=== PATIENT | female | born 1950 | race Caucasian/White ===

== ENCOUNTER → 2016-11-19 | Outpatient (CLI) | payer OTHER ==
--- NOTE | 2016-11-23 08:53 | RSPPFT ---
DATE OF PROCEDURE: 11/19/16 COMMENTS: VOLUMES DYNAMIC: FVC and FEV1 normal. STATIC: TLC, RV and VTG normal. FLOWS: FEV1% mildly reduced; FEF 25-75 severely reduced. DIFFUSION: Normal. FLOW VOLUME LOOP: Pattern of variable intrathoracic airways obstruction. IMPRESSION: Mild obstructive ventilatory defect with normal diffusion and not significant hyperinflation. Airways resistance is mildly increased.and there is no significant improvement post-bronchodilator.
== END ==
LOC: HRSP 10:47
DX: R06.00 Dyspnea, unspecified (principal)
CPT/HCPCS: 94060; 94726; 94729